=== PATIENT | female | born 1985 | race Caucasian/White ===

== ENCOUNTER 2023-12-18 19:16 | Emergency (ER) | payer BC, OTHER ==
[2023-12-18] MEDS ORDERED: Ketorolac Tromethamine 30 MG (1 mL) VIAL ONE (20:00)
[2023-12-18] MEDS ORDERED: Metoclopramide HCl 10 MG (2 mL) VIAL ONE (20:00)
[2023-12-18 20:44] LABS: #Basophils Less than 0.03 10x3/uL (0.0-0.2); #Eosinphils Less than 0.03 10x3/uL (0.0-0.7); %Basophils 0.5 % (0.0-1.0); %Monocytes 11.5 % (0.0-10.0); %Neutrophils 41.7 % (42.0-75.0); Hematocrit 35.1 % (36.0-47.0); Hemoglobin 12.4 g/dL (12.0-16.0); Mean Corpuscular HGB CONC 35.3 g/dL (32.0-36.0); Mean Corpuscular Hemoglobin 37.9 pg (27.0-31.0); Mean Corpuscular Volume 107.3 fL (78.0-98.0); Mean Platelet Volume 11.3 fL (7.4-10.4); Platelet Count 79 10x3/uL (130-400); RBC Distribution Width 11.9 % (11.5-14.5); Red Blood Cell (RBC) Count 3.27 mill/uL (4.20-5.40)
[2023-12-18 20:54] LABS: BHCG - Serum Negative (NEGATIVE); Pregs Control Background? CLEAR/WHITE (CLR/WHITE); Pregs Control Bar Appear? YES (CONTROL BAR)
[2023-12-18 21:00] LABS: ALT (SGPT) 74 U/L (8-55); AST (SGOT) 240 U/L (5-34); Albumin 4.1 g/dL (3.5-5.0); Alkaline Phosphatase 103 U/L (40-110); Anion Gap 27 mmol/L (10-20); BUN (Urea Nitrogen) 5 mg/dL (7.0-18.7); Bilirubin, Total 2.2 mg/dL (0.2-1.2); CK (CPK) 272 U/L (29-168); Calc. Creatinine Clearance 0 mL/min (70-130); Calcium 8.6 mg/dL (7.8-10.44); Carbon Dioxide 19 mmol/L (22-29); Chloride 97 mmol/L (98-107); Estimated GFR 111; Globulin 3.5 g/dL (2.4-3.5); Glucose 73 mg/dL (70-105); Lipase 30 U/L (8-78); Magnesium 1.3 mg/dL (1.6-2.6); Potassium 3.5 mmol/L (3.5-5.1); Protein, Total 7.6 g/dL (6.0-8.3); Sodium 139 mmol/L (136-145)
[2023-12-18 21:01] LABS: Acetaminophen Less than 10 mcg/mL (10.0-30.0); Alcohol 311.3 mg/dL (Less than 10); Salicylate Less than 8.0 mg/dL (15.0-30.0)
[2023-12-18] MEDS ORDERED: Magnesium 2 GM/50 ML BAG (IN WATER) ONE (21:57)
== END 2023-12-18 22:40 | disposition home or self-care (01) ==
LOC: ERS 19:16
DX: G43.909 Migraine, unspecified, not intractable, without status migrainosus (principal); F10.129 Alcohol abuse with intoxication, unspecified; I10 Essential (primary) hypertension; Y90.8 Blood alcohol level of 240 mg/100 ml or more
CPT/HCPCS: 36415; 80053; 80307; 82550; 83605; 83690; 83735; 84703; 85025; 93005; 96365; 96375; J1885; J2765; J3475